=== PATIENT | male | born 1980 | race Caucasian/White ===

== ENCOUNTER 2017-10-06 16:06 | Emergency (ER) | payer OTHER ==
[~2017-10-06] VITALS: Ht 190.5 cm; Wt 108.9 kg
[2017-10-06 16:09] VITALS: BP 174/115
[2017-10-06] MEDS: KETOROLAC 60 MG/2 ML VIAL IM ONE (16:58)
[2017-10-06 17:41] VITALS: BP 172/94
== END 2017-10-06 17:41 | disposition home or self-care (01) ==
LOC: MED 16:06
DX: S83.92XA Sprain of unspecified site of left knee, initial encounter (principal); I10 Essential (primary) hypertension; X58.XXXA Exposure to other specified factors, initial encounter; Y93.89 Activity, other specified; Y92.89 Other specified places as the place of occurrence of the external cause; Y99.8 Other external cause status
CPT/HCPCS: 73562; 96372; 99284; J1885